=== PATIENT | male | born 1995 | race Caucasian/White ===

== ENCOUNTER 2017-11-15 22:49 | Emergency (ER) | payer BC, SELFPAY | END 2017-11-16 00:29 | disposition home or self-care (01) | PROVIDERS: Emergency Provider Emergency Medicine; Visit Provider Emergency Medicine | DX: S52.125A Nondisplaced fracture of head of left radius, initial encounter for closed fracture; Y93.67 Activity, basketball | CPT/HCPCS: 73080; 73090; 99282 ==

== ENCOUNTER → 2017-11-21 10:03 | Outpatient (CLI) | payer BC, SELFPAY ==
--- NOTE | 2017-11-21 10:09 | XR_ITS ---
XR elbow LT 2V HISTORY: ITS.REASON: Left radial head fracture ORDERING PHYSICIAN: Jose Medina MD PATIENT AGE: 22 years COMPARISON: 11/15/2017 FINDINGS: There is a posterior splint present. There is a nondisplaced fracture of the radial neck overall not significant changed. IMPRESSION: Good alignment nondisplaced radial neck fracture
== END ==
PROVIDERS: PCP Internal Medicine; Visit Provider Orthopaedic Surgery
DX: S59.902A Unspecified injury of left elbow, initial encounter (principal)
CPT/HCPCS: 73070

== ENCOUNTER → 2017-11-29 09:04 | Outpatient (CLI) | payer BC, SELFPAY ==
--- NOTE | 2017-11-29 09:08 | XR_ITS ---
XR elbow LT 2V HISTORY: Follow-up fracture ITS.REASON: Left radial head fracture follow up ORDERING PHYSICIAN: Jose Medina MD PATIENT AGE: 22 years COMPARISON: 11/21/2017 FINDINGS: The spleen has been removed. Radial neck fracture once again noted nondisplaced rib fracture line appears somewhat less stranding on the lateral view suggesting healing. Displaced fat pads once again noted. IMPRESSION: Healing radial neck fracture with good alignment
== END ==
PROVIDERS: PCP Internal Medicine; Visit Provider Orthopaedic Surgery
DX: S52.125D Nondisplaced fracture of head of left radius, subsequent encounter for closed fracture with routine healing (principal)
CPT/HCPCS: 73070

== ENCOUNTER → 2021-10-11 13:38 | Outpatient (CLI) | payer OTHER, SELFPAY ==
[2021-10-11 15:30] LABS: Strep Scrn Group A (Rapid) Negative (Negative)
== END ==
PROVIDERS: Visit Provider Internal Medicine
DX: Z20.822 Contact with and (suspected) exposure to COVID-19 (principal)
CPT/HCPCS: 87430; C9803; U0003; U0005

== ENCOUNTER → 2022-02-05 13:43 | Outpatient (CLI) | payer OTHER, SELFPAY ==
[2022-02-05 15:55] LABS: Blood Urea Nitrogen 8 mg/dl (9-20); Calcium 9.3 mg/dl (8.4-10.2); Carbon Dioxide 26 mmol/L (22.0-30.0); Chloride 101 mmol/L (98-107); Estimated Glomerular Filt Rate 116 ml/min (>60); GFR (African American) 140 ML/MIN (>60); Glucose 84 mg/dl (74-100); Sodium 139 mmol/L (136-145); Uric Acid 8.7 mg/dl (3.5-8.5)
== END ==
LOC: LAB.DROPOF 13:44
PROVIDERS: Visit Provider Internal Medicine
DX: M10.9 Gout, unspecified (principal); F41.9 Anxiety disorder, unspecified
CPT/HCPCS: 80048; 84550

== ENCOUNTER 2024-01-22 14:51 | Outpatient (CLI) | payer OTHER, SELFPAY ==
[2024-01-22 15:36] LABS: Basophils % 0.5 % (0.1-2.0); Eosinophils # 0.1 K/mm3 (0.0-0.4); Eosinophils % 0.7 % (0.1-12.0); Hematocrit 47.1 % (42.0-52.0); Hemoglobin 15.3 g/dL (14.1-18.0); Lymphocytes # 2.5 K/mm3 (0.7-4.5); Lymphocytes % 36.3 % (10-50); Mean Corpuscular HGB Conc 32.5 g/dL (31.8-35.4); Mean Corpuscular Hemoglobin 30.3 pg (27.0-31.2); Mean Corpuscular Volume 93.2 fl (80-94); Mean Platelet Volume 7.7 fl (7.4-10.4); Monocytes # 0.4 K/mm3 (0.1-1.0); Neutrophils % 57.5 % (37.0-80.0); Platelet Count 275 K/mm3 (142-424); Red Blood Count 5.05 M/mm3 (4.60-6.20); Red Cell Distribution Width 13.4 % (11.5-17.5)
[2024-01-22 15:42] LABS: Alanine Aminotransferase 26 U/L (12-78); Albumin Level 4.7 g/dl (3.5-5.0); Alkaline Phosphatase 60 U/L (38-126); Anion Gap 10.8 mEq/L (5-15); Aspartate Amino Transferase 26 U/L (17-59); Bilirubin,Total 0.4 mg/dl (0.2-1.3); Blood Urea Nitrogen 10 mg/dl (9-20); Calcium 9.5 mg/dl (8.4-10.2); Carbon Dioxide 31 mmol/L (22.0-30.0); Chloride 103 mmol/L (98-107); Estimated Glomerular Filt Rate 88 ml/min (>60); GFR (African American) 107 ML/MIN (>60); Globulin 2.4 g/dL (1.3-3.2); Glucose 97 mg/dl (74-100); Potassium 3.8 mmoL/L (3.5-5.1); Sodium 141 mmol/L (136-145); Total Protein,Serum 7.1 g/dl (6.3-8.2); Uric Acid 9.3 mg/dl (3.5-8.5)
== END 2024-01-22 23:59 ==
LOC: LAB 14:52
PROVIDERS: PCP Internal Medicine; Visit Provider Internal Medicine
DX: M10.9 Gout, unspecified (principal)
CPT/HCPCS: 36415; 80053; 84550; 85025

== ENCOUNTER 2024-06-03 10:57 | Emergency (ER) | payer OTHER, SELFPAY ==
[2024-06-03 11:00] VITALS: BP 139/94; PULSE 80; RESP 20; TEMP 36.8; O2SAT 97; BMI 29.0
--- NOTE | 2024-06-03 11:10 | EXP.UTC ---
Discharge Plan Disposition Patient Disposition: Home, Self-Care Condition: Good Prescriptions Prescriptions: New azithromycin [Zithromax] 250 mg tablet 250 mg PO UD DOSE PK Qty: 6 0RF Rx Instructions: Take two (2) tablets today, then one (1) tablet days #2 thru #5 [id number]-pfyjwkmyr-AG [Bromfed DM] 2-30-10 mg/5 mL Syrup 5 ml PO Q6H PRN (Reason: Cough) Qty: 240 0RF No Action allopurinol 100 mg tablet 100 mg PO DAILY Patient Comments: TAKE TWO TABLETS BY MOUTH EVERY DAY FOR FOR GOUT colchicine 0.6 mg tablet 0.6 mg PO DAILY Patient Comments: TAKE ONE TABLET BY MOUTH EVERY DAY escitalopram oxalate 10 mg tablet 10 mg PO DAILY Patient Comments: TAKE ONE TABLET BY MOUTH EVERY DAY Referrals Follow up/Referrals: Law Jewell MD [Primary Care Provider] - See instructions Activity Restrictions/Add. Instructions Additional Instructions/Restrictions: Drink plenty of fluids. Take tylenol or ibuprofen for pain or fever. Take the medications as directed. Follow up with your regular doctor. GO TO THE ER FOR ANY WORSENING SYMPTOMS Clinical Impressions Clinical Impression: Bronchitis, Acute viral syndrome Stand Alone Forms Stand Alone Forms: Work/School Release Instructions Patient Instructions: DI for Acute Bronchitis, DI for Viral Syndrome Discharge ED Provider: Jose Rios [facility] General Stated complaint: chest congestion cough Time Seen by Provider: 06/03/24 11:10 History of Present Illness Provider Complaint: He states that for the past 2 days he has had chest tightness, chest congestion, chills and malaise. Related Data Home Medications Medication Instructions Recorded Confirmed allopurinol 100 mg tablet 100 mg PO DAILY 06/03/24 06/03/24 colchicine 0.6 mg tablet 0.6 mg PO DAILY 06/03/24 06/03/24 escitalopram oxalate 10 mg tablet 10 mg PO DAILY 06/03/24 06/03/24 Previous Rx's Medication Instructions Recorded azithromycin 250 mg tablet 250 mg PO UD DOSE PK #6 tabs 06/03/24 (Zithromax) gnclcpsmozovuib-baxwffdwgjxdltk-NM 5 ml PO Q6H PRN Cough #240 mL 06/03/24 2 mg-30 mg-10 mg/5 mL oral syrup (Bromfed DM) Allergies Allergy/AdvReac Type Severity Reaction Status Date / Time No Known Allergies Allergy Unverified 12/14/20 08:51 [facility] Disclaimer: The information contained in this section may have been updated after the patient was seen, as this information can be updated by other users. 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 ROS Obtained: Yes All systems reviewed & no additional complaints except as documented Constitutional Constitutional: Reports poor appetite Eyes Eyes: Reports system reviewed and no additional complaints, except as documented ENT Ears, Nose, Mouth, and Throat: Reports as per HPI Cardiovascular Cardiovascular: Reports system reviewed and no additional complaints, except as documented and Denies chest pain Respiratory Respiratory: Denies shortness of breath, Reports chest congestion, Reports cough, Denies stridor and Denies wheezing Gastrointestinal Gastrointestingal: Reports system reviewed and no additional complaints, except as documented; Denies abdominal pain, diarrhea or vomiting Musculoskeletal Musculoskeletal: Reports system reviewed and no additional complaints, except as documented and Denies arthralgias Integumentary/Breasts Skin/Breast: Reports system reviewed and no additional complaints, except as documented and Denies rash Neurologic Neurologic: Denies paresthesias Allergic/Immunologic Allergic/Immunologic: Denies wheezing Physical Exam General General appearance: alert and in no apparent distress Eye Eye exam: Present normal appearance, PERRL and EOMI ENT ENT exam: Present mucous membranes moist and normal external ear exam Expanded ENT Exam External ear exam: Present normal external inspection TM/Canal exam: Bilateral TM: erythema and bulging Nose exam: Absent sinus tenderness Nasal speculum exam: Bilateral: normal Mouth exam: Present normal external inspection; Absent drooling Teeth exam: Present normal inspection Throat exam: Present tonsillar erythema and tonsillomegaly Neck Neck exam: Present normal inspection, full ROM and trachea midline; Absent tenderness, lymphadenopathy or thyromegaly Chest Chest inspection: Present normal inspection and symmetric chest wall rise; Absent tenderness or rash Respiratory Respiratory exam: Present normal lung sounds bilaterally; Absent respiratory distress, wheezes, stridor or accessory muscle use Cardiovascular Cardiovascular exam: Present regular rate, normal rhythm and normal heart sounds Abdominal Exam Abdominal exam: Present soft; Absent distention, tenderness, guarding, rebound or rigidity Extremities Exam Extremities exam: Present normal inspection, full ROM and normal capillary refill; Absent tenderness or calf tenderness Back Exam Back exam: Present normal inspection and full ROM; Absent tenderness Neurological Exam Neurological exam: Present alert and oriented X3 Psychiatric Psychiatric exam: Present normal affect and normal mood Skin Skin exam: Present warm, dry, intact and normal color Lymphatic Lymphatic Findings: no adenopathy Medical Decision Making Medical Records Medical records reviewed: No I reviewed the patient's medical records. [facility] Inquiry Pt receiving controlled substance: No
[2024-06-03 11:30] VITALS: BP 139/94; PULSE 80; RESP 20; TEMP 36.8; O2SAT 97
[2024-06-03 11:37] LABS: Coronavirus 19, PCR Not Detected (NotDetected); Influenza A, PCR Not Detected (NotDetected); Influenza B, PCR Not Detected (NotDetected)
== END 2024-06-03 11:34 | disposition home or self-care (01) ==
PROVIDERS: Emergency Provider Nurse Practitioner Family; PCP Internal Medicine
DX: J20.9 Acute bronchitis, unspecified (principal); B34.9 Viral infection, unspecified
CPT/HCPCS: 87636; 99204; 99212; G0463

== ENCOUNTER 2024-06-17 18:33 | Emergency (ER) | payer OTHER, SELFPAY ==
--- NOTE | 2024-06-17 18:31 | ECG_ITS ---
APPROVED REPORT Exam: Resting ECG HR:105 bpm ECG Measurements Heart Rate 105 AXES LA 112 P 62 QRSd 113 QRS 59 QT 325 T 64 QTc 386 Conclusion SINUS TACHYCARDIA WITH SHORT LA INTERVAL INCOMPLETE RIGHT BUNDLE BRANCH BLOCK [90+ ms QRS DURATION, TERMINAL R IN V1/V2, 40+ ms S IN I/aVL/V4/V5/V6] Electronically signed by : MARIA DEL CARMEN CRAWFORD, 06/18/2024 00:47:01
[2024-06-17 18:34] VITALS: BMI 28.7
--- NOTE | 2024-06-17 18:35 | XR_ITS ---
PROCEDURE INFORMATION: Exam: XR Chest Exam date and time: 06/17/2024 6:43 PM Age: 29 years old Clinical indication: On breathing and right-sided; Patient HX: Right sided anterior to lateral chest pain on inspiration TECHNIQUE: Imaging protocol: Radiologic exam of the chest. Views: 2 views. COMPARISON: No relevant prior studies available. FINDINGS: Lungs: Low lung volumes. Right middle and possible right lower lobe opacities. Pleural spaces: No pleural effusion. No pneumothorax. Heart/Mediastinum: No cardiomegaly. Bones/joints: Unremarkable. IMPRESSION: Right middle and possible right lower lobe opacities, which may represent infection in the acute setting.
--- NOTE | 2024-06-17 18:37 | HMH.EDCP ---
Discharge Plan Disposition Patient Disposition: Home, Self-Care Condition: Good Prescriptions Prescriptions: New indomethacin 50 mg capsule 50 mg PO TID Qty: 21 0RF Rx Instructions: administer with food or milk doxycycline hyclate 100 mg tablet 100 mg PO BID 10 Days Qty: 20 0RF No Action allopurinol 100 mg tablet 100 mg PO DAILY Patient Comments: TAKE TWO TABLETS BY MOUTH EVERY DAY FOR FOR GOUT colchicine 0.6 mg tablet 0.6 mg PO DAILY Patient Comments: TAKE ONE TABLET BY MOUTH EVERY DAY escitalopram oxalate 10 mg tablet 10 mg PO DAILY Patient Comments: TAKE ONE TABLET BY MOUTH EVERY DAY azithromycin [Zithromax] 250 mg tablet 250 mg PO UD DOSE PK Qty: 6 0RF Rx Instructions: Take two (2) tablets today, then one (1) tablet days #2 thru #5 [id number]-[id number] [Bromfed DM] 2-30-10 mg/5 mL Syrup 5 ml PO Q6H PRN (Reason: Cough) Qty: 240 0RF Referrals Follow up/Referrals: Law Jewell MD [Primary Care Provider] - See instructions Activity Restrictions/Add. Instructions Additional Instructions/Restrictions: You were evaluated in the emergency department today. 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 You may also take Tylenol every 4-6 hours as needed for pain. Return to the emergency department for new or worsening symptoms. Follow-up with your primary care provider over the next week for reassessment. Clinical Impressions Clinical Impression: Pleurisy, Pneumonia Stand Alone Forms Stand Alone Forms: Work/School Release Instructions Patient Instructions: DI for Pneumonia -- Adult, DI for Atypical Chest Pain, DI for Pleurisy Print Language Print Language: Uzbek Discharge ED Provider: Marilu Peterson HPI General Chief Complaint: Chest Pain Stated Complaint: chest pain Time Seen by Provider: 06/17/24 18:35 History of Present Illness HPI narrative: This patient is a 29-year-old male presenting to the emergency department for evaluation with concern for right-sided pleuritic chest pain. Patient reports that he did have an upper respiratory infection/bronchitis for which she was evaluated in [facility] 06/03/2024. He states that he completed a course of azithromycin but is still has cough since then. He did lift a heavy mattress recently as well, but denies any significant injury associated with this. He did not feel pain afterward. Today, he has had right-sided pleuritic chest pain that is stabbing/throbbing in nature and is worse anytime he takes a deep breath. He was at work upstairs and the pain Progressively getting worse and worse to the point where he is not able to take a full deep breath in because of the pain. He took Tylenol with no improvement. He denies any fevers, chills, abdominal pain, vomiting, but he does note that he still had persistent cough. No history of blood clots or clotting disorders. No calf pain or swelling. Related Data Home Medications ?Medication ?Instructions ?Recorded ?Confirmed allopurinol 100 mg tablet 100 mg PO DAILY 06/03/24 06/03/24 colchicine 0.6 mg tablet 0.6 mg PO DAILY 06/03/24 06/03/24 escitalopram oxalate 10 mg tablet 10 mg PO DAILY 06/03/24 06/03/24 Previous Rx's ?Medication ?Instructions ?Recorded azithromycin 250 mg tablet 250 mg PO UD DOSE PK #6 tabs 06/03/24 (Zithromax) unlzixyyyvzsusl-dilvubfidmfjwks-LI 5 ml PO Q6H PRN Cough #240 mL 06/03/24 2 mg-30 mg-10 mg/5 mL oral syrup (Bromfed DM) doxycycline hyclate 100 mg tablet 100 mg PO BID 10 days #20 tabs 06/17/24 indomethacin 50 mg capsule 50 mg PO TID #21 caps 06/17/24 Allergies Allergy/AdvReac Type Severity Reaction Status Date / Time No Known Allergies Allergy Verified 06/17/24 18:49 [facility] Disclaimer: The information contained in this section may have been updated after the patient was seen, as this information can be updated by other users. 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 ROS Obtained: Yes All systems reviewed & no additional complaints except as documented Physical Exam General General appearance: alert Comment: Uncomfortable appearing with splinting respirations Head Head exam: atraumatic and normocephalic Eye Eye exam: Present normal appearance, PERRL and EOMI ENT ENT exam: Present normal exam, normal oropharynx, mucous membranes moist and normal external ear exam Neck Neck exam: Present normal inspection, full ROM and trachea midline; Absent tenderness Chest Chest inspection: Present normal inspection and symmetric chest wall rise; Absent tenderness Respiratory Respiratory exam: Present other (Splinted respirations secondary to pain, diminished breath sounds in the right lung); Absent respiratory distress, wheezes, stridor or accessory muscle use Cardiovascular Cardiovascular exam: Present normal rhythm and tachycardia Abdominal Exam Abdominal exam: Present soft; Absent distention, tenderness or guarding Extremities Exam Extremities exam: Present normal inspection, full ROM and normal capillary refill; Absent tenderness or edema Back Exam Back exam: Present normal inspection and full ROM; Absent tenderness Neurological Exam Neurological exam: Present alert, oriented X3, CN II-XII intact and normal gait; Absent motor sensory deficit Psychiatric Psychiatric exam: Present normal affect and normal mood Skin Skin exam: Present warm and dry HEART Score HEART Score HEART Score assessment performed?: Yes History (anamnesis): Slightly suspicious ECG: Normal Age: <45 years Risk factors: No known risk factors Troponin: </= normal limit HEART Score: 0 Critical Care Critical Care Time Critical Care Time: No Medical Decision Making Medical Records Medical records reviewed: Yes I reviewed the patient's medical records. [facility] Inquiry Pt receiving controlled substance: No Vital Signs Vital Signs: 06/17/24 18:38 06/17/24 19:00 06/17/24 19:30 Temperature 98.2 F Temperature Source Oral Pulse Rate 91 H 90 Pulse Rate [Left] 98 H Respiratory Rate 20 25 H 20 Blood Pressure 157/90 H 136/81 Blood Pressure [Right Arm] 158/101 H Blood Pressure Mean [Right Arm] 120 Blood Pressure Source [Right Arm] Automatic Cuff Blood Pressure Position [Right Arm] Sitting 02 Sat by Pulse Oximetry 99 97 97 Oxygen Delivery Method Room Air 06/17/24 20:00 06/17/24 20:31 06/17/24 20:39 Temperature 98.2 F Temperature Source Oral Pulse Rate 85 83 80 Pulse Rate [Left] Respiratory Rate 18 22 22 Blood Pressure 135/81 120/65 120/65 Blood Pressure [Right Arm] Blood Pressure Mean [Right Arm] Blood Pressure Source [Right Arm] Blood Pressure Position [Right Arm] 02 Sat by Pulse Oximetry 95 96 Oxygen Delivery Method Room Air Room Air Room Air Lab Data Labs: Lab Results 06/17/24 18:38: WBC 13.4 H, RBC 4.58 L, Hgb 14.1, Hct 42.6, MCV 93.0, MCH 30.7, MCHC 33.0, RDW 13.7, Plt Count 282, MPV 7.7, Neut % (Auto) 74.8, Lymph % (Auto) 19.2, [place] % (Auto) 4.8, Eos % (Auto) 0.9, Baso % (Auto) 0.3, Neut # (Auto) 10.0 H, Lymph # (Auto) 2.6, [place] # (Auto) 0.6, Eos # (Auto) 0.1, Baso # (Auto) 0.0, D-Dimer 0.36, Sodium 140, Potassium 3.6, Chloride 99, Carbon Dioxide 32 H, Anion Gap 12.6, BUN 12, Creatinine 0.90, Estimated Creat Clear 179, Estimated GFR 100, Est GFR ( Amer) 121, Glucose 113 H, Calcium 9.4, Total Bilirubin 0.6, AST 40, ALT 50, Alkaline Phosphatase 67, Troponin I < 0.01, Total Protein 7.8, Albumin 4.3, Globulin 3.5 H, Albumin/Globulin Ratio 1.2, Lipase 48 06/17/24 18:38 06/17/24 18:38 Response Orders (Tests/Meds): ED MEDICATIONS Discontinued Medications Generic Name Dose Route Start Last Admin Trade Name Flory PRN Reason Stop Dose Admin Acetaminophen 1,000 mg 06/17/24 18:41 06/17/24 19:00 Acetaminophen 500mg Tab PO 06/17/24 18:42 1,000 mg ONCE ONE Administration Doxycycline Hyclate 100 mg 06/17/24 19:55 06/17/24 20:13 Doxycycline Hycl 100 Mg Tablet PO 06/17/24 19:56 100 mg ONCE ONE Administration Ketorolac Tromethamine 15 mg 06/17/24 18:41 06/17/24 19:01 Ketorolac 30mg/Ml Vial IV 06/17/24 18:42 15 mg ONCE ONE Administration Lidocaine 1 each 06/17/24 18:41 06/17/24 19:00 Lidocaine 5% Transdermal Patch TP 06/17/24 18:42 1 each ONCE ONE Administration Methocarbamol 500 mg 06/17/24 18:42 06/17/24 19:00 Methocarbamol 500mg Tablet PO 06/17/24 18:43 500 mg ONCE ONE Administration Morphine Sulfate 4 mg 06/17/24 19:25 06/17/24 19:27 Morphine 4mg/Ml Syringe IV 06/17/24 19:26 4 mg ONCE ONE Administration ORDERS Category Date Time Status CXR 2 view (NOT portable) [XR chest 2V] Stat Exams 06/17/24 18:35 Completed CBC w/Auto Diff [Complete Blood Count Auto Diff] Stat Lab 06/17/24 18:38 Completed CMP [Comprehensive Metabolic Panel] Stat Lab 06/17/24 18:38 Completed D-Dimer Stat Lab 06/17/24 18:38 Completed Lipase Stat Lab 06/17/24 18:38 Completed Trop I [Troponin I] Stat Lab 06/17/24 18:38 Completed ECG Data Tracing #1: Attestation: I reviewed this ECG and interpreted as documented below: ECG Narrative: Sinus tachycardia with a ventricular rate of 105 bpm noted. Incomplete right bundle branch block. No acute ST changes concerning for ischemia. ECG initial impression date: 06/17/24 ECG initial impression time: 18:32 MDM Narrative Medical Decision Narrative: In summary, this patient is a 29-year-old male presenting to the Emergency Department for evaluation of right-sided pleuritic chest pain. Differential diagnoses considered include but are not limited to pleurisy, PE, pneumonia, bronchitis, pneumothorax, musculoskeletal strain/sprain, costochondritis. Ruling out the most morbid conditions drove assessment. On exam, the patient is uncomfortable appearing with splinting respirations secondary to pain. He is also mildly tachycardic. Given his tachycardia, cannot exclude PE using PERC criteria. Workup included CBC, CMP, troponin, D-dimer, chest x-ray, and EKG. EKG demonstrates sinus tachycardia with incomplete right bundle branch block, but no acute ST changes. He was given a bolus of IV fluids as well as IV Toradol, oral Tylenol, topical abdomen patch, and oral Robaxin for symptomatic improvement. I independently interpreted x-ray prior to the radiologist read and noted concern for pneumonia. Please see their read for final interpretation. Labs were obtained that demonstrated negative D-dimer, negative troponin. Patient does have mild leukocytosis On reassessment, patient had some improvement after administration of as above, but he continues to have pain. Given this, he was given IV morphine. This did significantly improve his symptoms. A little distal reassessment afterward, he is resting comfortably with normal respirations, reassuring cardiopulmonary exam, and normal vital signs on cardiac telemetry. Ultimately, I feel he likely has pleuritic chest pain in the setting of pneumonia. I prescribed him doxycycline and indomethacin to treat these issues. He was given first dose of doxycycline here.. At this time, patient was deemed to be appropriate for discharge home with prescriptions, close follow-up, and strict return precautions. He was discharged after all questions were answered.
[2024-06-17 18:38] VITALS: BP 158/101; PULSE 98; RESP 20; TEMP 36.8; O2SAT 99; BMI 28.7
[2024-06-17 18:45] LABS: Basophils % 0.3 % (0.1-2.0); Eosinophils # 0.1 K/mm3 (0.0-0.4); Eosinophils % 0.9 % (0.1-12.0); Hematocrit 42.6 % (42.0-52.0); Hemoglobin 14.1 g/dL (14.1-18.0); Lymphocytes # 2.6 K/mm3 (0.7-4.5); Lymphocytes % 19.2 % (10-50); Mean Corpuscular Hemoglobin 30.7 pg (27.0-31.2); Mean Platelet Volume 7.7 fl (7.4-10.4); Monocytes # 0.6 K/mm3 (0.1-1.0); Monocytes % 4.8 % (1.7-9.3); Neutrophils % 74.8 % (37.0-80.0); Platelet Count 282 K/mm3 (142-424); Red Blood Count 4.58 M/mm3 (4.60-6.20); Red Cell Distribution Width 13.7 % (11.5-17.5); White Blood Count 13.4 K/mm3 (4.8-10.8)
[2024-06-17 18:53] LABS: Alanine Aminotransferase 50 U/L (12-78); Albumin Level 4.3 g/dl (3.5-5.0); Albumin/Globulin Ratio 1.2 (1.1-1.8); Alkaline Phosphatase 67 U/L (38-126); Anion Gap 12.6 mEq/L (5-15); Aspartate Amino Transferase 40 U/L (17-59); Bilirubin,Total 0.6 mg/dl (0.2-1.3); Blood Urea Nitrogen 12 mg/dl (9-20); Calcium 9.4 mg/dl (8.4-10.2); Carbon Dioxide 32 mmol/L (22.0-30.0); Chloride 99 mmol/L (98-107); Creatinine Clearance Estimated 179 mL/min (50-200); Estimated Glomerular Filt Rate 100 ml/min (>60); GFR (African American) 121 ML/MIN (>60); Globulin 3.5 g/dL (1.3-3.2); Glucose 113 mg/dl (74-100); Lipase 48 U/L (23-300); Potassium 3.6 mmoL/L (3.5-5.1); Sodium 140 mmol/L (136-145); Total Protein,Serum 7.8 g/dl (6.3-8.2)
[2024-06-17 18:58] LABS: D-Dimer 0.36 ug/mL (0.0-0.5)
[2024-06-17 19:00] VITALS: BP 157/90; PULSE 91; RESP 25; O2SAT 97
[2024-06-17] MEDS: METHOCARBAMOL 500MG TABLET 500 MG PO (19:00)
[2024-06-17] MEDS: ACETAMINOPHEN 500MG TAB 1000 MG PO (19:00)
[2024-06-17] MEDS: LIDOCAINE 5% TRANSDERMAL PATCH 1 EACH TP (19:00)
[2024-06-17] MEDS: KETOROLAC 30MG/ML VIAL 15 MG IV (19:01)
[2024-06-17 19:11] LABS: Troponin I < 0.01 ng/ml (0.00-0.034)
[2024-06-17] MEDS: MORPHINE 4MG/ML SYRINGE 4 MG IV (19:27)
[2024-06-17 19:30] VITALS: BP 136/81; PULSE 90; RESP 20; O2SAT 97
[2024-06-17 20:00] VITALS: BP 135/81; PULSE 85; RESP 18; O2SAT 95
[2024-06-17] MEDS: DOXYCYCLINE HYCL 100 MG TABLET PO (20:13)
--- NOTE | 2024-06-17 20:18 | PC.NURSE ---
rounded on pt at this time. pt voices no needs.
--- NOTE | 2024-06-17 20:25 | PC.NURSE ---
Dr. Peterson s/w Dr. Hernandes
[2024-06-17 20:31] VITALS: BP 120/65; PULSE 83; RESP 22; O2SAT 96
[2024-06-17 20:39] VITALS: BP 120/65; PULSE 80; RESP 22; TEMP 36.8; O2SAT 95
== END 2024-06-17 20:42 | disposition home or self-care (01) ==
PROVIDERS: Emergency Provider Emergency Medicine; PCP Internal Medicine
DX: J18.9 Pneumonia, unspecified organism (principal); R09.1 Pleurisy; R07.1 Chest pain on breathing; R05.1 Acute cough; R00.0 Tachycardia, unspecified
CPT/HCPCS: 71046; 80053; 83690; 84484; 85025; 85378; 93005; 96374; 96375; 99284; J1885; J2270

== ENCOUNTER 2024-06-29 13:30 | Outpatient (CLI) | payer OTHER, SELFPAY ==
--- NOTE | 2024-06-29 13:33 | XR_ITS ---
FINAL REPORT CLINICAL HISTORY: Ongoing pleurisy-decreased breath sounds on right COMPARISON: 06/17/2024 FINDINGS: 2 views of the chest were obtained . The heart is normal in size. The mediastinum is within normal limits. There is a moderate right pleural effusion. Right base opacities favor atelectasis. There is no pneumothorax. Osseous structures are unremarkable. IMPRESSION: Moderate right pleural effusion with right base opacities, favor atelectasis. Reviewed, Interpreted and Dictated by Maurice Poole III, MD Transcribed by Sonia Mcadams Authenticated and [facility]
== END 2024-06-29 23:59 | disposition home or self-care (01) ==
LOC: RAD 13:31
PROVIDERS: PCP Internal Medicine; Visit Provider Internal Medicine
DX: J18.9 Pneumonia, unspecified organism (principal); R09.1 Pleurisy
CPT/HCPCS: 71046

== ENCOUNTER 2024-07-07 13:15 | Outpatient (CLI) | payer OTHER, SELFPAY ==
--- NOTE | 2024-07-07 13:16 | US_ITS ---
FINAL REPORT CLINICAL HISTORY: Right effusion COMPARISON: None FINDINGS: Limited sonographic images were obtained of the right chest. There is a minimal amount of fluid layering measuring up to 1 cm. IMPRESSION: Minimal right pleural effusion. Reviewed, Interpreted and Dictated by Jf Kemp MD Transcribed by Gwen Max Authenticated and [facility]
--- NOTE | 2024-07-07 13:39 | XR_ITS ---
FINAL REPORT TECHNIQUE: Chest PA & Lateral CLINICAL HISTORY: Right effusion COMPARISON: 06/29/2024 FINDINGS: 2 views of the chest were performed. The heart size is normal. The mediastinum is within normal limits. There is no acute cardiopulmonary process. There is a tiny residual right pleural effusion. There is no pneumothorax. The bony thorax appears intact. IMPRESSION: Tiny residual right pleural effusion. Reviewed, Interpreted and Dictated by Jf Kemp MD Transcribed by Gwen Max Authenticated and [facility]
== END 2024-07-07 23:59 | disposition home or self-care (01) ==
LOC: RAD 13:16
PROVIDERS: PCP Internal Medicine; Visit Provider Internal Medicine Pulmonary Disease
DX: J90 Pleural effusion, not elsewhere classified (principal); R06.02 Shortness of breath
CPT/HCPCS: 71046; 76604